=== PATIENT | male | born 1980 | race Two or more races ===

== ENCOUNTER 2020-04-11 06:15 | Day surgery (SDC) | payer OTHER ==
[2020-04-11] MEDS ORDERED: PERCOCET 5-3251 EACH PO (08:46)
[2020-04-11] MEDS ORDERED: COLACE100 MG PO (08:46)
== END 2020-04-11 16:50 | disposition home or self-care (01) ==
LOC: CIR.AMB 06:15
PROVIDERS: ATTEND Surgery
DX: K60.1 Chronic anal fissure (principal); Z20.828 Contact with and (suspected) exposure to other viral communicable diseases